=== PATIENT | female | born 1970 | race Two or more races ===

== ENCOUNTER 2024-02-20 10:13 | Emergency (ER) | payer MEDICAID, SELFPAY ==
[2024-02-20 10:33] VITALS: BP 119/78; PULSE 109; RESP 20; TEMP 38.6; O2SAT 96; BMI 33.9
--- NOTE | 2024-02-20 10:41 | XR_ITS ---
Upright AP lateral chest 2 views examination: AP lateral chest 2 views Technique: Upright AP lateral chest 2 views Exam date and time: February 20, 2024 1103 hrs. Indications: Coughing beginning 2 days ago Findings: Mild prominence left ventricle Mild vascular congestion No lobar pneumonia or kasie pulmonary edema Impression: No lobar pneumonia or kasie pulmonary edema
--- NOTE | 2024-02-20 11:28 | EDNOTE_ITS ---
<Statement entered by Deepali Griffin MD - 02/20/24 16:21> As co-signing physician, I was present and available for consult prn. I concur with the plan and care as documented by the midlevel provider. Upper Respiratory Inf. RME/HPI General Chief Complaint: Flu Like Symptoms Stated Complaint: sore throat, cough, cannot talk, headache Time Seen by Provider: 02/20/24 10:40 Arrival date/time: 02/20/24 10:13 53-year-old female presents to the emergency department today complains of sore throat, cough, congestion, fever and bodyaches ongoing x 1 day Limitations: no limitations Related Data Home Medications ?Medication ?Instructions ?Recorded ?Confirmed acetaminophen 325 mg tablet (Pain 325 mg PO Q4H PRN Pain 04/16/22 04/16/22 Relief (acetaminophen)) amoxicillin 500 mg capsule 500 mg PO BID 04/16/22 04/16/22 ibuprofen 600 mg tablet 600 mg PO Q8HR PRN Pain 04/16/22 04/16/22 Previous Rx's ?Medication ?Instructions ?Recorded prednisone 50 mg tablet 50 mg PO QDAY #3 tabs 04/16/22 amoxicillin 875 mg-potassium 1 tab PO BID 10 days #20 tabs 02/20/24 clavulanate 125 mg tablet ibuprofen 800 mg tablet 800 mg PO TID PRN pain #30 tabs 02/20/24 Allergies Allergy/AdvReac Type Severity Reaction Status Date / Time morphine Allergy Severe Palpitation Verified 02/20/24 10:16 s omeprazole Allergy Severe Hives Verified 02/20/24 10:16 Review of Systems Review of Systems Systems Reviewed: All systems reviewed, normal except as documented Constitutional Constitutional: Reports system reviewed and no additional complaints, except as documented, Reports body ache(s), Reports chills, Reports fever(s) and Reports headache(s) Eyes Eyes: Reports system reviewed and no additional complaints, except as documented and Denies blurry vision ENT Ears, Nose, Mouth, and Throat: Reports system reviewed and no additional complaints, except as documented, Reports headache(s), Denies nasal congestion, Reports nasal discharge, Reports sore throat and Denies throat swelling Cardiovascular Cardiovascular: Reports system reviewed and no additional complaints, except as documented, Denies chest pain and Denies dyspnea Respiratory Respiratory: Reports system reviewed and no additional complaints, except as documented, Denies chest congestion, Denies cough and Denies dyspnea Gastrointestinal Gastrointestinal: Reports system reviewed and no additional complaints, except as documented and Denies abdominal pain Integumentary/Breasts Skin/Breast: Reports system reviewed and no additional complaints, except as documented and Denies rash Neurologic Neurologic: Reports system reviewed and no additional complaints, except as documented, Reports as per HPI and Reports headache(s) Allergic/Immunologic Allergic/Immunologic: Denies throat swelling Past Medical History Past Medical History NEUROLOGIC: Negative Neurological Disorders CARDIAC: Negative Cardiac Disorders ED Exam General Limitations: Present no limitations General appearance: Present alert and in no apparent distress Head Head exam: Present atraumatic, normocephalic and normal inspection Eye Eye exam: Present normal appearance, PERRL and EOMI; Absent conjunctival injection ENT ENT exam: Present normal exam, normal oropharynx and mucous membranes moist Neck Neck exam: Present normal inspection, full ROM and trachea midline Chest Chest inspection: Present normal inspection and symmetric chest wall rise Respiratory Respiratory exam: Present normal lung sounds bilaterally; Absent respiratory distress Cardiovascular Cardiovascular exam: Present regular rate, normal rhythm and normal heart sounds Abdominal Exam Abdominal exam: Present soft and normal bowel sounds; Absent distention, te nderness, guarding, rebound or rigidity Extremities Exam Extremities exam: Present normal inspection and full ROM Back Exam Back exam: Present normal inspection and full ROM Neurological Exam Neurological exam: Present alert, oriented X3, CN II-XII intact, normal gait and reflexes normal; Absent motor sensory deficit Psychiatric Psychiatric exam: Present normal affect and normal mood Skin Skin exam: Present warm, dry, intact and normal color Course Quality Measures none Orders Category Date Time Status Bedside COVID-19 Antigen Test NOW Care 02/20/24 10:41 Completed Bedside Influenza A&B Antigen Test NOW Care 02/20/24 10:41 Completed XR chest 2V Stat Exams 02/20/24 10:41 Completed Ibuprofen Tab [Motrin Tab] Med 02/20/24 10:41 Discontinued 800 mg PO X1 ONE Vital Signs Vital signs: Vital Signs Temperature 101.4 F H 02/20/24 10:33 Pulse Rate 109 H 02/20/24 10:33 Respiratory Rate 20 02/20/24 10:33 Blood Pressure 119/78 02/20/24 10:33 Pulse Oximetry (%) 96 02/20/24 10:33 Oxygen Delivery Method Room Air 02/20/24 10:33 O2 saturation 96% on room air within normal limits Upper Respiratory Infection MDM Narrative MDM Narrative:: 53-year-old female presents to the emergency department today complains of sore throat, cough, congestion, fever and bodyaches ongoing x 1 day On exam patient well-appearing patient does not appear ill or toxic patient's not appear in acute distress Patient checked for flu COVID chest x-ray obtained Flu and COVID both negative chest x-ray is negative Symptoms consistent with pharyngitis patient will be treated course of antibiotics Patient discharged home in no distress to follow-up with primary care doctor in the next 24 to 48 hours and for any worsening symptoms to return to the ER immediately Patient data External records reviewed:: [facility] previous records Clinical information provided by:: patient Social determinants that could affect healthcare access:: none Patient has the following chronic illnesses:: See history How is presenting disease/condition affected by chronic disease/condition?: uneffected by Evaluation data The following diagnostics were reviewed and interpreted by me:: lab results and radiology exam(s) Lab and/or radiology exams considered but not ordered:: Labs radiology obtain Interpretation Summary: Reviewed by me Medications / Prescriptions Medications or Prescriptions considered but not ordered:: Given Medication administrations:: Medication Administration History Discontinued Medications Ibuprofen (Ibuprofen Tab 400 Mg Tablet) 800 mg PO X1 ONE Stop: 02/20/24 10:42 Last Admin: 02/20/24 11:54 Dose: 800 mg Documented By: Given Consultations Consultation(s) initiated? (list below): No Diagnosis Upper Respiratory Differential Diagnosis: upper respiratory infection, viral infection, bronchitis and pharyngitis Most likely diagnosis given after review of the tests above:: Pharyngitis Admission Indicated Admission indicated?: not indicated Admission Request Was there a request for admission?: No Disposition Plan Disposition Plan: Discharge Discharge Attestation Discharge Attestation: The patient and all family members were given an opportunity to ask questions and understood the discharge instructions. Discharge instructions specifically effects, indications for sooner follow up or return to the emergency department, and the expected course of current diagnosis. Patient condition: Stable Discharge Plan Plan Patient Disposition: HOME (Self Care) Disposition Comment: Stable Prescriptions/Referrals Prescriptions/Med Rec: New ibuprofen 800 mg tablet 800 mg PO TID PRN (Reason: pain) Qty: 30 0RF amoxicillin-pot clavulanate 875-125 mg tablet 1 tab PO BID 10 Days Qty: 20 0RF No Action amoxicillin 500 mg capsule 500 mg PO BID Patient Comments: take 1 capsule by mouth twice a day for 10 days acetaminophen [Pain Relief (acetaminophen)] 325 mg tablet 325 mg PO Q4H PRN (Reason: Pain) Patient Comments: take 1 tablet by mouth every 4 hours if needed ibuprofen 600 mg tablet 600 mg PO Q8HR PRN (Reason: Pain) Patient Comments: take 1 tablet by mouth three times a day with food or milk if needed prednisone 50 mg tablet 50 mg PO QDAY Qty: 3 0RF Referrals: Spenser Ibrahim MD [Primary Care Provider] - In 1 week Problem List Clinical Impression: Pharyngitis Patient/Caregiver Discharge Instructions Education Materials: When You Have a Sore Throat Additional Instructions: Please follow up with your primary care doctor in the next 24-48hrs for any worsening symptoms return here immediately Print Language: Beninese Stand Alone Forms: Gayle Award Info., Patient Portal Info Letter PA/JOSE Supervising Physician PA/JOSE Supervising Physician: Dr. GRIFFIN
[2024-02-20 11:54] VITALS: TEMP 38.3
[2024-02-20] MEDS: IBUPROFEN TAB 400 MG TABLET 800 MG PO (11:54)
== END 2024-02-20 12:06 | disposition home or self-care (01) ==
PROVIDERS: Emergency Provider Emergency Medicine; PCP Family Medicine
DX: J02.9 Acute pharyngitis, unspecified (principal)
CPT/HCPCS: 71046; 87400; 87811; 99283; A9270

== ENCOUNTER 2024-02-24 07:38 | Emergency (ER) | payer MEDICAID, SELFPAY ==
[2024-02-24 07:40] VITALS: BMI 33.8
[2024-02-24 07:51] VITALS: BP 132/77; PULSE 98; RESP 21; TEMP 37.3; O2SAT 97; BMI 35.2
--- NOTE | 2024-02-24 07:58 | XR_ITS ---
Examination: PA lateral chest 2 views Technique: Upright PA lateral chest 2 views Exam date and time: February 16, 2024 0802 hrs. Indications: Coughing beginning one week ago. Findings: Normal heart size No lobar pneumonia or pulmonary edema The osseous structures are intact Mild accentuation basilar bronchovascular markings Impression: Mild basilar bronchitis pattern
--- NOTE | 2024-02-24 07:58 | PD.EDURI ---
Upper Respiratory Inf. RME/HPI General Chief Complaint: Flu Like Symptoms Stated Complaint: COUGH/CXP/BACK PAIN/TIRED x 6 DAYS Time Seen by Provider: 02/24/24 07:52 Source: patient Arrival date/time: 02/24/24 07:38 53-year-old female presents emergency department complaining of cough, upper back pain when she takes a deep breath, headache, and bodyaches for 6 days. Mode of arrival: ambulatory Limitations: no limitations Related Data Home Medications ?Medication ?Instructions ?Recorded ?Confirmed acetaminophen 325 mg tablet (Pain 325 mg PO Q4H PRN Pain 04/16/22 04/16/22 Relief (acetaminophen)) amoxicillin 500 mg capsule 500 mg PO BID 04/16/22 04/16/22 ibuprofen 600 mg tablet 600 mg PO Q8HR PRN Pain 04/16/22 04/16/22 Previous Rx's ?Medication ?Instructions ?Recorded prednisone 50 mg tablet 50 mg PO QDAY #3 tabs 04/16/22 amoxicillin 875 mg-potassium 1 tab PO BID 10 days #20 tabs 02/20/24 clavulanate 125 mg tablet ibuprofen 800 mg tablet 800 mg PO TID PRN pain #30 tabs 02/20/24 acetaminophen 500 mg capsule 500 mg PO Q6H PRN pain #30 caps 02/24/24 Allergies Allergy/AdvReac Type Severity Reaction Status Date / Time morphine Allergy Severe Palpitation Verified 02/24/24 07:43 s omeprazole Allergy Severe Hives Verified 02/24/24 07:43 Review of Systems Review of Systems Systems Reviewed: All systems reviewed, normal except as documented Constitutional Constitutional: Reports system reviewed and no additional complaints, except as documented, Reports body ache(s), Denies chills, Denies fever(s) and Reports headache(s) Eyes Eyes: Reports system reviewed and no additional complaints, except as documented and Denies change in vision ENT Ears, Nose, Mouth, and Throat: Reports system reviewed and no additional complaints, except as documented, Denies disequilibrium, Denies dizziness, Reports headache(s), Denies sore throat and Denies vertigo Cardiovascular Cardiovascular: Reports system reviewed and no additional complaints, except as documented, Denies chest pain and Denies dyspnea Respiratory Respiratory: Reports system reviewed and no additional complaints, except as documented, Denies chest congestion, Reports cough and Denies dyspnea Gastrointestinal Gastrointestinal: Reports system reviewed and no additional complaints, except as documented, Denies abdominal pain, Denies nausea and Denies vomiting Musculoskeletal Musculoskeletal: Reports system reviewed and no additional complaints, except as documented, Denies abnormal gait, Denies arthralgias and Reports back pain Integumentary/Breasts Skin/Breast: Reports system reviewed and no additional complaints, except as documented, Denies erythema, Denies rash and Denies wounds Neurologic Neurologic: Reports system reviewed and no additional complaints, except as documented, Denies abnormal gait, Denies disequilibrium, Denies dizziness, Reports headache(s) and Denies vertigo Past Medical History Past Medical History NEUROLOGIC: Negative Neurological Disorders CARDIAC: Negative Cardiac Disorders or Congestive Heart Failure RESPIRATORY: Positive Asthma and Tuberculosis; Negative Chronic Obstructive Pulmonary Disease (COPD) GASTROINTESTINAL: Positive Gall Bladder Disease and Gastroesophageal Reflux Disease GENITOURINARY: Positive Kidney Stones; Negative Renal Disease REPRODUCTIVE: Positive Previous Pregnancies MUSCULOSKELETAL: Positive Carpal Tunnel Syndrome and Fractures ENDOCRINE: Negative Diabetes Mellitus Type 1 or Diabetes Mellitus Type 2 HEMATOLOGIC: Negative Sickle Cell Disease OTHER HISTORY: Positive Hospitalization and Chicken Pox Family History FAMILY HISTORY: Positive Family Cardiac Disorders Social History SMOKING STATUS: Never smoker ED Exam General Limitations: Present no limitations General appearance: Present alert and in no apparent distress Head Head exam: Present atraumatic Eye Eye exam: Present normal appearance, PERRL and EOMI ENT ENT exam: Present normal exam, normal oropharynx and mucous membranes moist Neck Neck exam: Present normal inspection, full ROM and trachea midline Chest Chest inspection: Present normal inspection and symmetric chest wall rise Respiratory Respiratory exam: Present normal lung sounds bilaterally Cardiovascular Cardiovascular exam: Present regular rate, normal rhythm and normal heart sounds Abdominal Exam Abdominal exam: Present soft and normal bowel sounds Extremities Exam Extremities exam: Present normal inspection and full ROM Back Exam Back exam: Present normal inspection and full ROM Neurological Exam Neurological exam: Present alert, oriented X3 and CN II-XII intact Psychiatric Psychiatric exam: Present normal affect and normal mood Skin Skin exam: Present warm, dry, intact and normal color Course Quality Measures none Orders Category Date Time Status Bedside COVID-19 Antigen Test NOW Care 02/24/24 07:58 Active Bedside Influenza A&B Antigen Test NOW Care 02/24/24 07:58 Completed XR chest 2V Stat Exams 02/24/24 07:58 Completed Acetaminophen Tab [Tylenol ES Tab] Med 02/24/24 08:14 Discontinued 1,000 mg PO X1 ONE Vital Signs Vital signs: Vital Signs Temperature 99.2 F 02/24/24 07:51 Pulse Rate 98 02/24/24 07:51 Respiratory Rate 21 H 02/24/24 07:51 Blood Pressure 132/77 H 02/24/24 07:51 Pulse Oximetry (%) 97 02/24/24 07:51 Oxygen Delivery Method Room Air 02/24/24 07:51 97% room air within normal limits Upper Respiratory Infection MDM Narrative MDM Narrative:: 53-year-old female presents emergency department complaining of cough, upper back pain when she takes a deep breath, headache, and bodyaches for 6 days. Patient appears nontoxic and is hemodynamically stable. No adventitious lung sounds on auscultation. Patient not appear to be in any respiratory distress. Chest x-ray findings bronchitis pattern with no pneumonia. Patient stable for discharge likely viral infection. Patient data External records reviewed:: [facility] previous records Clinical information provided by:: patient Social determinants that could affect healthcare access:: none Patient has the following chronic illnesses:: None How is presenting disease/condition affected by chronic disease/condition?: no chronic disease Evaluation data The following diagnostics were reviewed and interpreted by me:: radiology exam(s) Lab and/or radiology exams considered but not ordered:: Ordered Interpretation Summary: Interpreted by me Medications / Prescriptions Medications or Prescriptions considered but not ordered:: Ordered Medication administrations:: Medication Administration History Discontinued Medications Acetaminophen (Acetaminophen 500 Mg Tablet) 1,000 mg PO X1 ONE Stop: 02/24/24 08:15 Given Consultations Consultation(s) initiated? (list below): No Diagnosis Upper Respiratory Differential Diagnosis: upper respiratory infection, sinusitis, viral infection, bronchitis, influenza and pharyngitis Most likely diagnosis given after review of the tests above:: Bronchitis Admission Indicated Admission indicated?: not indicated Admission Request Was there a request for admission?: No Disposition Plan Disposition Plan: Discharge Discharge Attestation Discharge Attestation: The patient and all family members were given an opportunity to ask questions and understood the discharge instructions. Discharge instructions specifically effects, indications for sooner follow up or return to the emergency department, and the expected course of current diagnosis. Patient condition: Stable Discharge Plan Plan Patient Disposition: HOME (Self Care) Disposition Comment: Stable Prescriptions/Referrals Prescriptions/Med Rec: New acetaminophen 500 mg capsule 500 mg PO Q6H PRN (Reason: pain) Qty: 30 0RF No Action amoxicillin 500 mg capsule 500 mg PO BID Patient Comments: take 1 capsule by mouth twice a day for 10 days acetaminophen [Pain Relief (acetaminophen)] 325 mg tablet 325 mg PO Q4H PRN (Reason: Pain) Patient Comments: take 1 tablet by mouth every 4 hours if needed ibuprofen 600 mg tablet 600 mg PO Q8HR PRN (Reason: Pain) Patient Comments: take 1 tablet by mouth three times a day with food or milk if needed prednisone 50 mg tablet 50 mg PO QDAY Qty: 3 0RF ibuprofen 800 mg tablet 800 mg PO TID PRN (Reason: pain) Qty: 30 0RF amoxicillin-pot clavulanate 875-125 mg tablet 1 tab PO BID 10 Days Qty: 20 0RF Referrals: Spenser Ibrahim MD [Primary Care Provider] - In 1 week Problem List Clinical Impression: Bronchitis Patient/Caregiver Discharge Instructions Discharge Activity: activity as tolerated Education Materials: ED Bronchitis, No Antibiotic (Adult) Additional Instructions: Drink plenty of fluids and stay hydrated to liquefy secretions. Get plenty of rest and take Tylenol or ibuprofen as needed for fever or pain. Follow-up with primary care provider in 2 to 3 days. Return to emergency department for any worsening symptoms or as needed. Print Language: Moldovan Stand Alone Forms: Gayle Award Info., Patient Portal Info Letter HUNTER/JOSE Supervising Physician HUNTER/JOSE Supervising Physician: Dr. Villalpando
[2024-02-24] MEDS: ACETAMINOPHEN 500 MG TABLET 1000 MG PO (08:29)
== END 2024-02-24 08:36 | disposition home or self-care (01) ==
PROVIDERS: Emergency Provider Emergency Medicine; PCP Family Medicine
DX: J40 Bronchitis, not specified as acute or chronic (principal)
CPT/HCPCS: 71046; 87400; 87811; 99283; A9270